=== PATIENT | female | born 1930 | race Hispanic/Latino ===

== ENCOUNTER 2020-08-24 12:13 | Observation (INO) | payer OTHER, MEDICARE ==
[~2020-08-24] VITALS: Ht 147.3 cm; Wt 46.9 kg
[2020-08-24 13:03] LABS: BASOPHILS % (AUTO) 0.5 % (0.0-5.0); EOSINOPHILS % (AUTO) 3.2 % (0.0-8.0); HEMATOCRIT 39.1 % (36-48); LYMPHOCYTES % (AUTO) 25.5 % (21.0-51.0); MEAN CORPUSCULAR HEMOGLOBIN 27.5 pg (27.0-33.0); MEAN CORPUSCULAR HGB CONC 31.2 g/dL (32.0-36.0); MEAN CORPUSCULAR VOLUME 88.3 fL (79-99); MONOCYTES % (AUTO) 8.2 % (3.0-13.0); NEUTROPHILS % (AUTO) 61.7 % (40.0-77.0); PLATELET COUNT (AUTO) 315 K/uL (130-400); RED BLOOD CELL COUNT(AUTO) 4.43 MIL/uL (4.00-5.50); RED CELL DISTRIBUTION WIDTH 17.2 % (11.0-15.5); WHITE BLOOD COUNT (AUTO) 5.9 K/uL (4.8-10.8)
[2020-08-24 13:56] LABS: ALANINE AMINOTRANSFERASE 15 U/L (12-78); ALBUMIN 2.6 g/dL (3.5-5.0); ASPARTATE AMINOTRANSFERASE 24 U/L (10-37); BILIRUBIN,TOTAL 0.3 mg/dL (0.2-1.0); CARBON DIOXIDE 28 mmol/L (21-32); CHLORIDE 105 mmol/L (101-111); CREATININE 0.9 mg/dL (0.5-1.5); GLOMERULAR FILTR. RATE CALC 63 mL/min (>60); POTASSIUM 4.1 mmol/L (3.5-5.1); SODIUM SERUM 140 mmol/L (136-145); TOTAL PROTEIN, SERUM 6.8 g/dL (6.0-8.3); TROPONIN I < 0.04 ng/mL (0.00-0.06); UREA NITROGEN, BLOOD 21 mg/dL (7-18)
[2020-08-24 14:07] LABS: GLUCOSE,RANDOM 93 mg/dL (70-105)
[2020-08-24] MEDS ORDERED: CLINDAMYCIN 600 MG/D5% WATER 50 ML IV ONE (14:36)
[2020-08-24] MEDS ORDERED: IOHEXOL-350 75 ML VIAL IV ONE (15:47)
[2020-08-24] MEDS ORDERED: ZOSYN 3.375GM+NS 50ML 50 ML IV ONE (18:02)
[2020-08-24] MEDS ORDERED: MORPHINE SULFATE 2 MG/ML 1ML SYG IVP PRN (19:15)
[2020-08-24] MEDS ORDERED: MORPHINE SULFATE 4 MG/1ML SYG IVP PRN (19:15)
[2020-08-24] MEDS ORDERED: SERTRALINE HCL 50 MG TABLET ONE (20:43)
[2020-08-24] MEDS ORDERED: MEMANTINE HCL 5 MG TABLET ONE (20:44)
[2020-08-24] MEDS ORDERED: RISPERIDONE 1 MG TABLET PO ONE (22:00)
[2020-08-25] MEDS ORDERED: ZOSYN 3.375GM+NS 50ML 50 ML IV ONE (00:42)
[2020-08-25 01:10] VITALS: BP 160/75
[2020-08-25 04:03] VITALS: BP 121/49
[2020-08-25] MEDS ORDERED: ACET325T51 PO (04:59)
[2020-08-25] MEDS ORDERED: SERT-438 PO (04:59)
[2020-08-25] MEDS ORDERED: RISP1TAB98 PO (04:59)
[2020-08-25] MEDS ORDERED: IBUP-2070 PO (04:59)
[2020-08-25] MEDS ORDERED: MEMA10TA11 PO (04:59)
[2020-08-25] MEDS ORDERED: ACET-3194 PO (04:59)
[2020-08-25] MEDS ORDERED: FAMO20TA8 PO ×2 (04:59)
[2020-08-25] MEDS ORDERED: MELA1TAB21 PO (04:59)
[2020-08-25 05:51] LABS: HEMATOCRIT 35.2 % (36-48); MEAN CORPUSCULAR HEMOGLOBIN 27.4 pg (27.0-33.0); MEAN CORPUSCULAR HGB CONC 31.5 g/dL (32.0-36.0); MEAN CORPUSCULAR VOLUME 86.9 fL (79-99); RED BLOOD CELL COUNT(AUTO) 4.05 MIL/uL (4.00-5.50); RED CELL DISTRIBUTION WIDTH 16.3 % (11.0-15.5); WHITE BLOOD COUNT (AUTO) 5.2 K/uL (4.8-10.8)
[2020-08-25 06:13] LABS: ALBUMIN 2.4 g/dL (3.5-5.0); BILIRUBIN,TOTAL 0.4 mg/dL (0.2-1.0); POTASSIUM 4.1 mmol/L (3.5-5.1); TOTAL PROTEIN, SERUM 6.1 g/dL (6.0-8.3)
[2020-08-25 08:00] VITALS: BP 123/52
[2020-08-25] MEDS: ZOSYN 3.375GM+NS 50ML 50 ML IV SCH ×2 (11:02→18:00)
[2020-08-25 11:33] VITALS: BP 121/51
[2020-08-25 16:00] VITALS: BP 113/60
[2020-08-25 19:00] VITALS: BP 120/50
== END 2020-08-25 20:15 | disposition short-term general hospital (02) ==
LOC: EDH 12:13 → EDHIP 17:52 → 3BH 08-25 00:54
PROVIDERS: ADMIT Internal Medicine; ATTEND Internal Medicine
DX: K12.2 Cellulitis and abscess of mouth (principal); Z20.822 Contact with and (suspected) exposure to COVID-19; G30.9 Alzheimer's disease, unspecified; F02.80 Dementia in other diseases classified elsewhere, unspecified severity, without behavioral disturbance, psychotic disturbance, mood disturbance, and anxiety; F32.9 Major depressive disorder, single episode, unspecified; S00.03XA Contusion of scalp, initial encounter; Z79.899 Other long term (current) drug therapy; W01.198A Fall on same level from slipping, tripping and stumbling with subsequent striking against other object, initial encounter; Y93.01 Activity, walking, marching and hiking; Y92.89 Other specified places as the place of occurrence of the external cause
CPT/HCPCS: 36415 ×2; 70450; 70487; 71045; 72125; 80053 ×2; 84484; 85025; 85027; 87070; 87076; 87077; 87101; 87103; 87186; 87206 ×2; 87426; 93005; 96365; 96366; 99285; G0378 ×26; J2543 ×3; J3490; Q9967; U0003